=== PATIENT | female | born 1990 | race Caucasian/White ===

== ENCOUNTER 2018-04-03 15:11 | Emergency (ER) | payer BC ==
[2018-04-03 15:47] VITALS: BP 142/84
[2018-04-03] MEDS ORDERED: Ondansetron ODT TAB* 4 MG PO ONE (16:14)
--- NOTE | 2018-04-03 16:17 | UC ---
Throat Pain/Nasal Orestes HPI - HPI Summary HPI Summary: 28-year-old woman comes in with a chief complaint of sore throat nasal congestion fevers chills and feeling ill. Denies she started vomiting quite a bit now she can't keep anything down which is making him getting worse. She also has a headache. She only has abdominal pain while she is vomiting otherwise does not have abdominal pain. He does have myalgias which are generalized. - History of Current Complaint Chief Complaint: UCGeneralIllness Stated Complaint: CHEST CONGESTION, SOB, CHEST PAIN Time Seen by Provider: 04/03/18 16:07 Hx Last Menstrual Period: 03/30/18 Pain Intensity: 7 - Allergies/Home Medications Allergies/Adverse Reactions: Allergies Allergy/AdvReac Type Severity Reaction Status Date / Time No Known Allergies Allergy Verified 04/03/18 15:44 Home Medications: Home Medications Guaifenesin/Pseudoephedrne HCl [Mucinex D ER 600-60 mg Tablet] 1 each PO Q6H [History Confirmed 04/03/18] PMH/Surg Hx/FS Hx/Imm Hx Previously Healthy: Yes - Surgical History Surgical History: None - Family History Known Family History: Negative: Diabetes - Social History Alcohol Use: None Substance Use Type: None Smoking Status (MU): Heavy Every Day Tobacco Smoker Type: Cigarettes Amount Used/How Often: 1/2 ppd Review of Systems Constitutional: Fever, Chills Skin: Negative Eyes: Negative ENT: Sore Throat, Nasal Discharge, Sinus Congestion Respiratory: Cough Cardiovascular: Negative Gastrointestinal: Vomiting Motor: Negative Neurovascular: Negative Musculoskeletal: Myalgia Neurological: Headache Psychological: Negative Is Patient Immunocompromised?: No All Other Systems Reviewed And Are Negative: Yes Physical Exam Triage Information Reviewed: Yes Appearance: No Pain Distress, Well-Nourished, Ill-Appearing - MILD Vital Signs: Initial Vital Signs Temp 97.5 F 04/03/18 15:43 Pulse 101 04/03/18 15:43 Resp 18 04/03/18 15:43 BP 142/84 04/03/18 15:43 Pulse Ox 98 04/03/18 15:43 Vital Signs Reviewed: Yes Eye Exam: Normal Eyes: Positive: Conjunctiva Clear ENT: Positive: Pharyngeal erythema, Nasal congestion, Nasal drainage, TMs normal Neck exam: Normal Neck: Positive: Supple Respiratory: Positive: Lungs clear, Normal breath sounds, No respiratory distress Cardiovascular: Positive: Tachycardia Abdomen Description: Positive: Nontender, Soft Bowel Sounds: Positive: Present Musculoskeletal Exam: Normal Musculoskeletal: Positive: Strength Intact, ROM Intact Neurological Exam: Normal Neurological: Positive: Alert, Muscle Tone Normal Psychological Exam: Normal Psychological: Positive: Age Appropriate Behavior Skin Exam: Normal Throat Pain/Nasal Course/Dx - Course Course Of Treatment: The patient was given Zofran in the clinic. She felt a little better but that she did vomit one more time. Rapid strep and influenza both negative. We discussed further treatment. At this time the plan is a prescription for Zofran and rest at home and treat symptomatically. If she gets worse or gets dehydrated or has any pain she is to go to the emergency department for further evaluation and care. - Differential Dx/Diagnosis Provider Diagnoses: VOMITING. DEHYDRATION. UPPER RESPIRATORY TRACT INFECTION Discharge - Sign-Out/Discharge Documenting (check all that apply): Patient Departure All imaging exams completed and their final reports reviewed: No Studies - Discharge Plan Condition: Stable Disposition: HOME Prescriptions: Ondansetron ODT TAB* [Zofran 4 MG Odt TAB*] 4 mg PO Q6H PRN #10 tab.odt PRN Reason: Nausea Patient Education Materials: Acute Nausea and Vomiting (ED), Dehydration (ED), Upper Respiratory Infection (ED) Referrals: [facility] [Outside] Additional Instructions: FOLLOW UP WITH YOUR DOCTOR IF NOT COMPLETELY IMPROVED. GO TO THE EMERGENCY DEPARTMENT FOR ANY WORSENING OF YOUR CONDITION OR QUESTIONS OR CONCERNS. - Billing Disposition and Condition Condition: STABLE Disposition: Home
== END 2018-04-03 17:09 | disposition home or self-care (01) ==
LOC: UCCORT 15:11
DX: J06.9 Acute upper respiratory infection, unspecified (principal); R11.10 Vomiting, unspecified; E86.0 Dehydration; F17.210 Nicotine dependence, cigarettes, uncomplicated
CPT/HCPCS: 87651; 99202; A9270-GY; G0463

== ENCOUNTER 2018-10-22 12:24 | Emergency (ER) | payer BC ==
[2018-10-22 12:46] VITALS: BP 136/78
--- NOTE | 2018-10-22 13:03 | UC ---
Cardiac HPI - HPI Summary HPI Summary: chest pain x 3 days intermittent , lasting for few hrs, + shortness of breath when having chest pain pain is mid chest , no radiation , nothing makes it worse or better + cold symptoms for the past 3 weeks no fever, no cough pt. is a smoker, on BCP - History of Current Complaint Chief Complaint: UCRespiratory Stated Complaint: SOSA,CHEST PAIN Time Seen by Provider: 10/22/18 12:28 Hx Obtained From: Patient Hx Last Menstrual Period: 09/23/18 Onset/Duration: Gradual Onset, Lasting Days - 3, Still Present Timing: Intermittent Episodes Lasting: - 1 hr Initial Severity: Moderate Current Severity: Moderate Pain Intensity: 4 Chest Pain Location: Mid Sternal Aggravating Factor(s): Nothing Alleviating Factor(s): Nothing Associated Signs & Symptoms: Positive: Weakness, Dizziness, SOB. Negative: Vision Changes, Anxiety, Recent Stress, Headaches, Numbness, Tingling, Swelling , Syncope, Fever, Diaphoresis, Nausea/Vomiting, Palpitations, Cough, Hemoptysis , Back Pain, Abdominal Pain, Calf Pain/Swelling - Risk Factors Pulmonary Embolism Risk Factors: Oral Contraceptives, Smoking - Allergy/Home Medications Allergies/Adverse Reactions: Allergies Allergy/AdvReac Type Severity Reaction Status Date / Time No Known Allergies Allergy Verified 10/22/18 12:36 Home Medications: Home Medications Aspirin/Acetaminophen/Caffeine [Excedrin Migraine Caplet] 1 each PO PRN [History] Oral Contraceptive 1 tab PO DAILY 10/22/18 [History] PMH/Surg Hx/FS Hx/Imm Hx Previously Healthy: Yes - Surgical History Surgical History: None - Family History Known Family History: Negative: Diabetes - Social History Alcohol Use: None Substance Use Type: None Smoking Status (MU): Heavy Every Day Tobacco Smoker Type: Cigarettes Amount Used/How Often: 1/2 ppd Household Exposure Type: Cigarettes Review of Systems All Other Systems Reviewed And Are Negative: Yes Constitutional: Positive: Negative Skin: Positive: Negative Eyes: Positive: Negative ENT: Positive: Nasal Discharge Respiratory: Positive: Shortness Of Breath. Negative: Cough Cardiovascular: Positive: Chest Pain Is Patient Immunocompromised?: No Physical Exam Triage Information Reviewed: Yes Appearance: Well-Appearing, No Pain Distress, Well-Nourished Vital Signs: Initial Vital Signs Temp 97.2 F 10/22/18 12:38 Pulse 98 10/22/18 12:38 Resp 17 10/22/18 12:38 BP 136/78 10/22/18 12:38 Pulse Ox 97 10/22/18 12:38 Vital Signs Reviewed: Yes Eye Exam: Normal Eyes: Positive: Conjunctiva Clear ENT: Positive: Normal ENT inspection, Hearing grossly normal Dental Exam: Normal Neck: Positive: Supple, Nontender, No Lymphadenopathy Respiratory: Positive: Chest non-tender, Lungs clear, Normal breath sounds Cardiovascular: Positive: RRR, No Murmur, Pulses Normal Abdominal Exam: Normal Abdomen Description: Positive: Nontender, Soft. Negative: CVA Tenderness (R), CVA Tenderness (L), Distended, Guarding Bowel Sounds: Positive: Present Skin Exam: Normal Diagnostics - EKG Cardiac Rate: NL Cardiac Rhythm: Sinus: Normal ST Segment: Normal - Clinical Impression Provider Diagnosis: Shortness of breath Discharge - Sign-Out/Discharge Documenting (check all that apply): Patient Departure All imaging exams completed and their final reports reviewed: No Studies - Discharge Plan Condition: Stable Disposition: HOME Patient Education Materials: Shortness of Breath (ED) Referrals: No Primary Care Phys,NOPCP [Primary Care Provider] - 6 Days Additional Instructions: will check CBC also check D-Dimer to R/O possible PE if elevated D-Dimer we will call you to be seen again for more testing - Billing Disposition and Condition Condition: STABLE Disposition: Home
[2018-10-22 19:09] LABS: ABS Basophils 0.1 10^3/ul (0-0.2); ABS Eosinophils 0.1 10^3/ul (0-0.6); ABS Monocytes 0.7 10^3/ul (0-0.8); ABS Neutrophils 9.8 10^3/ul (1.5-7.7); Hematocrit 40 % (35-47); Hemoglobin 13.6 g/dL (12.0-16.0); Lymphocyte % 21.9 %; Mean Corpuscular HGB Conc 34 g/dL (31-36); Mean Corpuscular Hemoglobin 31 pg (27-31); Mean Corpuscular Volume 90 fL (80-97); Mean Platelet Volume 9.1 fL (7.4-10.4); Platelet Count 310 10^3/uL (150-450); Red Blood Count 4.45 10^6 /uL (3.70-4.87); Red Cell Distribution Width 12 % (10.5-15); White Blood Count 13.6 10^3/uL (3.5-10.8)
--- NOTE | 2018-10-23 07:29 | UC ---
- Progress Note Progress Note: Patient seen on 10/22 with SOB and chest pain. Provider wanted to check a D- dimer to evaluate for a PE. Please contact patient to tell her there was concern for a pulmonary embolism at prior visit and she needs to go to the ER for evaluation. Lab was unable to do the d-dimer on 10/22. Course/Dx - Diagnoses Provider Diagnoses: Shortness of breath Discharge - Sign-Out/Discharge Documenting (check all that apply): Post-Discharge Follow Up All imaging exams completed and their final reports reviewed: No Studies - Discharge Plan Condition: Stable Disposition: HOME Patient Education Materials: Shortness of Breath (ED) Referrals: No Primary Care Phys,NOPCP [Medical Doctor] - 6 Days Additional Instructions: will check CBC also check D-Dimer to R/O possible PE if elevated D-Dimer we will call you to be seen again for more testing - Billing Disposition and Condition Condition: STABLE Disposition: Home
== END 2018-10-22 13:12 | disposition home or self-care (01) ==
LOC: UCCORT 12:24
DX: R06.02 Shortness of breath (principal); R05 Cough; F17.210 Nicotine dependence, cigarettes, uncomplicated
CPT/HCPCS: 85025; 93005; 99211; G0463

== ENCOUNTER 2019-02-20 15:55 | Emergency (ER) | payer BC ==
--- NOTE | 2019-02-20 16:20 | UC ---
Throat Pain/Nasal Orestes HPI - HPI Summary HPI Summary: 29-year-old female who has been having some tongue pain over the past 3 weeks. She stated her tongue is normally coated a little bit but has been more coated over the past 3 weeks. She is a smoker. Today she noted some red spots on her tongue. - History of Current Complaint Stated Complaint: SORE THROAT ORAL Time Seen by Provider: 02/20/19 16:15 Hx Obtained From: Patient Hx Last Menstrual Period: 09/23/18 ?: No Onset/Duration: Gradual Onset Severity: Mild Cough: None Associated Signs & Symptoms: Positive: Negative - Allergies/Home Medications Allergies/Adverse Reactions: Allergies Allergy/AdvReac Type Severity Reaction Status Date / Time No Known Allergies Allergy Verified 02/20/19 16:23 Home Medications: Home Medications NK [No Home Medications Reported] 02/20/19 [History Confirmed 02/20/19] PMH/Surg Hx/FS Hx/Imm Hx Previously Healthy: Yes - Surgical History Surgical History: None - Family History Known Family History: Negative: Diabetes - Social History Alcohol Use: None Substance Use Type: None Smoking Status (MU): Heavy Every Day Tobacco Smoker Type: Cigarettes Amount Used/How Often: 1/2 ppd Household Exposure Type: Cigarettes Review of Systems All Other Systems Reviewed And Are Negative: Yes ENT: Positive: Sore Throat - Patient had a sore throat but that resolved about 3 weeks ago., Other - Patient states over the past 2 days she is noted some small red spots on her tongue. She states because she smokes she normally has a coating on her tongue but that has been more than usual the past week or 2. Is Patient Immunocompromised?: No Physical Exam Triage Information Reviewed: Yes Appearance: Well-Appearing, No Pain Distress, Well-Nourished Vital Signs Reviewed: Yes Eyes: Positive: Conjunctiva Clear ENT: Positive: Pharynx normal, TMs normal, Uvula midline, Other - The patient's tongue is coated however it does not appear to be yeastlike. Buccal mucosa is pink and normal in appearance. She has 3 very small pink taste buds that appear mildly inflamed but no other sores. On the right side of her tongue it does appear white sure then the left side of her tongue but it does not appear to be a patch of white skin. Neck: Positive: Supple, Nontender, No Lymphadenopathy Respiratory: Positive: Lungs clear, Normal breath sounds, No respiratory distress, No accessory muscle use Cardiovascular: Positive: RRR, No Murmur, Pulses Normal, Brisk Capillary Refill Musculoskeletal Exam: Normal Neurological Exam: Normal Psychological Exam: Normal Skin Exam: Normal Throat Pain/Nasal Course/Dx - Course Course Of Treatment: The patient is comfortable here. Her tongue is not swollen. I don't feel this is a thrush. It may be related to her smoking. I spoke with her about following up with an ear nose and throat physician and she prefers to stay in [place] with Dr. Apple. I advised her to follow-up early next week or tomorrow if she is able to get in. Patient is agreeable to this plan of action for follow-up. - Differential Dx/Diagnosis Provider Diagnosis: Coated tongue Discharge ED - Sign-Out/Discharge Documenting (check all that apply): Patient Departure All imaging exams completed and their final reports reviewed: No Studies - Discharge Plan Condition: Good Disposition: HOME Referrals: Destiny Cox NP [Primary Care Provider] - Magdaleno Apple MD [Medical Doctor] - Additional Instructions: Warm salt water swish and spit 4-6 times a day. Call today or tomorrow and make an appointment with Dr. Apple to be reevaluated. - Billing Disposition and Condition Condition: GOOD Disposition: Home
[2019-02-20 16:23] VITALS: BP 145/91
== END 2019-02-20 16:40 | disposition home or self-care (01) ==
LOC: UCCORT 15:55
DX: K14.3 Hypertrophy of tongue papillae (principal); F17.210 Nicotine dependence, cigarettes, uncomplicated
CPT/HCPCS: 99211; G0463

== ENCOUNTER 2019-04-19 09:16 | Emergency (ER) | payer BC ==
--- OUTSIDE RECORDS SUMMARY | 2019-04-19 10:35 | XMS REPORT | Continuity of Care Document ---
:1990 External Reference #:[id number] Author Name Simran Burns NP (transmitted by agent of provider Kristin Pinto) Address [address] [place] [id number] Care Team Providers Name Role Phone Destiny Cox FNP - Family Care Team Information Baby Stroller Rental Clerk [phone] Problems Description No Information Available Social History Type Date Description Comments Sex Unknown Allergies, Adverse Reactions, Alerts Description No Information Available Medications Description No Active Medications Immunizations Description No Information Available Vital Signs Date Vital Result Comment 02/27/2019 8:10am Weight 154.00 lb Height 64 inches 5'4" BMI (Body Mass Index) 26.4 kg/m2 BP Systolic 131 mmHg BP Diastolic 87 mmHg Heart Rate 89 /min O2 % BldC Oximetry 97 % Body Temperature 97.2 F Pain Level 2 Results Description No Information Available Procedures Description No Information Available Medical Devices Description No Information Available Encounters Description No Information Available Assessments Description No Information Available Plan of Treatment No Information Available Functional Status Description No Information Available Mental Status Description No Information Available Referrals Description No Information Available
[2019-04-19 10:39] VITALS: BP 146/89
--- NOTE | 2019-04-19 11:12 | UC ---
Throat Pain/Nasal Orestes HPI - HPI Summary HPI Summary: Patient is 29 year old female, who present today to the urgent care with cough and congestion for past 3 weeks . She has cough productive of phlegm. Feels mainly chest congestion Also has some postnasal drip and some headaches at times but denies much sinus congestion or pressure. Denies any fever, chills, chest pain or shortness of breath . Denies any abdominal pain , nausea or vomiting , diarrhea or constipation. She has been taking [id number] cough medication and decongestants with continued symptoms - History of Current Complaint Chief Complaint: UCGeneralIllness Stated Complaint: COUGH,CONGESTION Time Seen by Provider: 04/19/19 10:58 Hx Obtained From: Patient Hx Last Menstrual Period: 03/20/19 ?: No Pain Intensity: 0 - Allergies/Home Medications Allergies/Adverse Reactions: Allergies Allergy/AdvReac Type Severity Reaction Status Date / Time No Known Allergies Allergy Verified 04/19/19 10:39 Home Medications: Home Medications Multivitamin [Multivitamins] 1 cap PO 04/19/19 [History] PMH/Surg Hx/FS Hx/Imm Hx - Additional Past Medical History Additional PMH: Past Medical History : Had workup of chest pain last year at [facility] and was found to be negative Past Surgical History: No Past History of Procedure Family History : non contributory Social History : No alcohol, daily smoker, no drug use. Previously Healthy: Yes - Surgical History Surgical History: None - Family History Known Family History: Positive: Non-Contributory Negative: Diabetes Family History: Noncontributory - Social History Alcohol Use: None Substance Use Type: None Smoking Status (MU): Heavy Every Day Tobacco Smoker Type: Cigarettes Amount Used/How Often: 1/2 ppd Household Exposure Type: Cigarettes Review of Systems All Other Systems Reviewed And Are Negative: Yes Constitutional: Positive: Negative Skin: Positive: Negative Eyes: Positive: Negative ENT: Positive: Sinus Congestion. Negative: Sore Throat, Ear Ache Respiratory: Positive: Cough - Productive of phlegm. Negative: Shortness Of Breath Cardiovascular: Positive: Negative. Negative: Chest Pain Gastrointestinal: Positive: Negative Genitourinary: Positive: Negative Motor: Positive: Negative Neurovascular: Positive: Negative Musculoskeletal: Positive: Negative Neurological: Positive: Headache - Mild Psychological: Positive: Negative Is Patient Immunocompromised?: No Physical Exam - Summary Physical Exam Summary: Physical Exam: Const: Appears well. No signs of apparent distress present. Alert and oriented x 3. Musculo: Walks with a normal gait. Head/Face: Atraumatic, normocephalic on inspection. Eyes: EOMI and PERRLA in both eyes. Conjunctivae clear. No discharge noted ENT: Hearing normal, TM normal appearing bilaterally No tenderness to palpation on maxillary and frontal sinus. No pharyngeal erythema or exudates . Uvula is midline. No cervical or submandibular lymphadenopathy noted. Respiratory: Respirations are unlabored. Lungs clear to auscultation bilaterally, no wheezing , rhonchi or rales noted . CVS: Regular rate and Rhythm, S1S2 normal , no murmurs identified. Extremities: Peripheral circulation is grossly normal. Pulses 2+ Abdomen : Soft non tender , nondistended , Bowel sounds present . No guarding , rebound tenderness or rigidity noted. Skin: No lesions or rash located on the upper extremities or on the lower extremities. Neuro: Cranial nerves II to XII intact, motor and sensory intact. DTR Intact bilaterally. Mood is normal. Affect is normal. Triage Information Reviewed: Yes Vital Signs: Initial Vital Signs Temp 98.6 F 04/19/19 10:37 Pulse 100 04/19/19 10:37 Resp 18 04/19/19 10:37 BP 146/89 04/19/19 10:37 Pulse Ox 100 04/19/19 10:37 Vital Signs Reviewed: Yes Throat Pain/Nasal Course/Dx - Course Course Of Treatment: During the visit today, we discussed the findings, suspect atypical pneumonia or bronchitis and plan to treat it with antibiotics since her symptoms have been going on for past 3 weeks . Patient expressed understanding . - Differential Dx/Diagnosis Provider Diagnosis: Atypical pneumonia Discharge ED - Sign-Out/Discharge Documenting (check all that apply): Patient Departure All imaging exams completed and their final reports reviewed: No Studies - Discharge Plan Condition: Stable Disposition: HOME Prescriptions: Azithromyxin DIDIER (NF) [Z-Didier (Zithromax) 250 mg tabs #6] 2 tab PO .TODAY, THEN 1 DAILY 5 Days #6 tab Patient Education Materials: Pneumonia (ED) Referrals: Destiny Cox NP [Primary Care Provider] - 1 Week Additional Instructions: Please start taking the medication as prescribed to the pharmacy . Follow up with your primary care doctor in 1 week Patients blood pressure slightly high in Urgent care today , plan follow up with PCP for reevaluation Return to Urgent care / ER if symptoms get worse. - Billing Disposition and Condition Condition: STABLE Disposition: Home
== END 2019-04-19 11:26 | disposition home or self-care (01) ==
LOC: UCCORT 09:16
DX: J18.9 Pneumonia, unspecified organism (principal); R09.82 Postnasal drip; R51 Headache; R09.81 Nasal congestion; F17.210 Nicotine dependence, cigarettes, uncomplicated
CPT/HCPCS: 99212; G0463